=== PATIENT | male | born 1965 | race Caucasian/White ===

== ENCOUNTER 2018-04-07 16:18 | Emergency (ER) | payer SELFPAY ==
[~2018-04-07] VITALS: Ht 182.9 cm; Wt 62.8 kg
[2018-04-07 16:24] VITALS: BP 117/76
== END 2018-04-07 16:48 | disposition left against medical advice (07) ==
LOC: ED 16:40
DX: Z53.21 Procedure and treatment not carried out due to patient leaving prior to being seen by health care provider (principal)